=== PATIENT | female | born 2000 | race Caucasian/White ===

== ENCOUNTER 2021-05-02 22:00 | Emergency (ER) | payer OTHER ==
[~2021-05-02] VITALS: Ht 160 cm; Wt 56.9 kg
[2021-05-02] MEDS ORDERED: IBUP80TA PO (22:07)
[2021-05-02] MEDS ORDERED: NICO7DIS30 TOP (22:12)
[2021-05-03 04:49] LABS: BASO % 0.5 % (0.0-1.0); EOS # 0.2 10^3/uL (0.0-0.5); EOS % 2.7 % (0.0-3.0); HEMATOCRIT 34.8 % (36.0-47.0); HEMOGLOBIN 11.9 g/dl (12.0-15.5); LYMPH # 3.4 10^3/uL (1.5-5.0); LYMPH % 38.6 % (24.0-44.0); MEAN CORPUSCULAR HEMOGLOBIN 30.7 pg (27.0-33.0); MEAN CORPUSCULAR HGB CONC 34.2 g/dl (32.0-36.5); MEAN CORPUSCULAR VOLUME 89.9 fl (80.0-96.0); MONO # 0.6 10^3/uL (0.0-0.8); NEUTROPHILS # 4.4 10^3/uL (1.5-8.5); PLATELET COUNT, AUTOMATED 312 10^3/uL (150-450); RED BLOOD COUNT 3.87 10^6/uL (4.00-5.40); WHITE BLOOD COUNT 8.7 10^3/uL (4.0-10.0)
[2021-05-03 05:22] LABS: ALBUMIN 3.6 GM/DL (3.2-5.2); ALT/SGPT 18 U/L (12-78); BILIRUBIN,DIRECT 0.2 MG/DL (0.0-0.2); BILIRUBIN,TOTAL 0.6 MG/DL (0.2-1.0); BLOOD UREA NITROGEN 12 MG/DL (7-18); CALCIUM LEVEL 8.8 MG/DL (8.5-10.1); CARBON DIOXIDE LEVEL 28 MEQ/L (21-32); CHLORIDE LEVEL 108 MEQ/L (98-107); CK-MB VALUE MASS < 1.0 NG/ML (<3.6); CPK CREATINE PHOSPHOKINASE 81 U/L (26-192); GLOMERULAR FILTRATION RATE > 60.0 (>60); GLUCOSE, FASTING 81 MG/DL (70-100); MB/CK RELATIVE INDEX 1.23 (< OR =4); POTASSIUM SERUM 4.1 MEQ/L (3.5-5.1); SODIUM LEVEL 139 MEQ/L (136-145); TOTAL PROTEIN 6.3 GM/DL (6.4-8.2); TROPONIN I < 0.02 NG/ML (< 0.10)
[2021-05-03 05:27] LABS: HCG, SERUM QUALITATIVE NEGATIVE (NEGATIVE)
[2021-05-03 05:38] LABS: RSV AMPLIFICATION NEGATIVE (NEGATIVE)
[2021-05-03 06:15] VITALS: BP 102/53
[2021-05-03] MEDS ORDERED: PRED20TA PO (06:41)
[2021-05-03] MEDS ORDERED: PROV108A INH (06:41)
--- NOTE | 2021-05-03 07:08 | REPVR ---
PROCEDURE INFORMATION: Exam: XR Chest Exam date and time: 05/03/2021 5:52 AM Age: 20 years old Clinical indication: Cough and dyspnea; Additional info: Dyspnea/cough TECHNIQUE: Imaging protocol: XR of the chest. Views: 1 view. COMPARISON: No relevant prior studies available. FINDINGS: Lungs: No consolidation. Pleural spaces: No pleural effusion. No pneumothorax. Heart/Mediastinum: No cardiomegaly. Bones/joints: Unremarkable. IMPRESSION: No acute findings. Electronically signed by: Praveen Cuadra On 05/03/2021 07:07:40 AM
--- NOTE | 2021-05-03 07:51 | ECGEPIP ---
[facility] - ED Test Date: 2021-05-03 Pat Name: ABDULKADIR ANDERSON Department: Room: - Gender: Female Electroencephalogram Technologist: sunny : 2000 Requested By: JAVIER Brooks Order Number: [id number] Reading MD: Javier Mcgee Measurements Intervals [place] Rate: 50 P: 66 [place]: 120 QRS: 64 QRSD: 82 T: 39 QT: 424 QTc: 386 Interpretive Statements Sinus bradycardia Comparison tracing not on file Electronically Signed on 05-03-2021 7:51:17 EDT by Javier Mcgee
== END 2021-05-03 07:01 | disposition home or self-care (01) ==
LOC: M ED 22:00
DX: J06.9 Acute upper respiratory infection, unspecified (principal); R00.1 Bradycardia, unspecified